=== PATIENT | female | born 1990 | race Two or more races ===

== ENCOUNTER 2019-06-25 12:12 | Emergency (ER) | payer OTHER ==
[~2019-06-25] VITALS: Ht 165.1 cm; Wt 77.1 kg
== END 2019-06-25 15:14 | disposition home or self-care (01) ==
LOC: ER 12:12
DX: S51.852A Open bite of left forearm, initial encounter (principal); W55.01XA Bitten by cat, initial encounter; Y93.89 Activity, other specified; Y92.89 Other specified places as the place of occurrence of the external cause; Y99.8 Other external cause status